=== PATIENT | female | born 2000 | race Caucasian/White ===

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

== ENCOUNTER 2020-05-24 00:14 | Emergency (ER) | payer MEDICAID, OTHER ==
[~2020-05-24] VITALS: Ht 157.5 cm; Wt 66.6 kg
[~2020-05-24 00:14] MED LIST changes: +ONDA8TAB9 PO; +TRAM1TAB4 PO
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
--- NOTE | 2020-05-24 00:51 | EKG ---
[address] [address] Test Date: 2020-05-24 Test Time: 00:43:50 Pat Name: PEÑA AJ Department: Room: Gender: F Customer Professional: : 2000 Requested By: LUH TOWNSEND Order Number: [id number] Reading MD: Measurements Intervals [place] Rate: 96 P: 62 CT: 120 QRS: 68 QRSD: 94 T: 28 QT: 340 QTc: 430 Interpretive Statements SINUS RHYTHM NORMAL ECG RI6.02 No previous ECG available for comparison
--- NOTE | 2020-05-24 00:54 | RAD ---
Single view chest dated 05/24/2020: No comparison available. Clinical Indication: Pain after injury. Findings: Single upright portable exam of the chest was performed. Heart size and mediastinal contours are with in normal limits given technique. The lungs are clear without evidence of focal consolidation. No ple ural effusion or pneumothorax. Impression:: Negative portable chest. Electronically signed by: Michael Ashraf MD (05/24/2020 12:52 AM) [facility]
--- NOTE | 2020-05-24 00:54 | RAD ---
CT HEAD AND C-SPINE WO dated 05/24/2020 12:24 AM. Comparison: None. Clinical Indication: Reason: fell off bar stool, hit head, loss of consciousness / Spl. Instructions: / History: , PAIN Technical factors: Contiguous 5 mm axial images of the head were obtained from the skullbase to the v ertex. No contrast was administered. In addition, 3 mm axial images of the cervical spine were acquir ed with thin cut coronal and sagittal reconstructions. One or more of the following individualized dose reduction techniques were utilized for this examinat ion: 1. Automated exposure control 2. Adjustment of the mA and/or kV according to patient size 3. Use of iterative reconstruction technique Findings head: Ventricles and sulci are within normal limits for age. No evidence of ventricular shift or mass effec t. Brain parenchyma is of normal attenuation. There is no evidence of hemorrhage or extra-axial colle ction. Visualized paranasal sinuses and mastoid air cells are clear. No acute osseous abnormality. IMPRESSION HEAD: No evidence of acute intracranial abnormality. Findings cervical spine: Images were acquired from skull base to T4. Evaluation is limited due to motion artifact. There is sl ight anterolisthesis of C4 on C5. Sagittal alignment is otherwise anatomic. Vertebral body heights ar e maintained. No apparent fracture. No prevertebral soft tissue swelling. Mild multilevel uncovertebral spurring and facet arthropathy. No apparent focal disc herniation. The bony canal and foramen are adequate. No significant soft tissue abnormality. Limited images of lung apices are clear.. . IMPRESSION CERVICAL SPINE: 1. Limited exam. No apparent fracture or malalignment. 2. Mild multilevel spondylosis. Electronically signed by: Michael Ashraf MD (05/24/2020 12:51 AM) [facility]
[2020-05-24 01:06] LABS: BASO % 1 % (0-3); EOS # 0.1 x10^3/uL (0.0-0.7); EOS % 2 % (0-3); HEMOGLOBIN 14.5 g/dL (12.0-15.5); LYMPH # 2.6 x10^3/uL (1.0-4.8); LYMPH % 40 % (24-48); MEAN CORPUSCULAR HEMOGLOBIN 31 pg (25-35); MEAN CORPUSCULAR HGB CONC 34 g/dL (31-37); MEAN CORPUSCULAR VOLUME 93 fL (79-100); MONO # 0.3 x10^3/uL (0.0-1.1); MONO % 5 % (0-9); NEUT # 3.5 x10^3uL (1.8-7.7); NEUT % 53 % (31-73); PLATELET COUNT 295 x10^3/uL (140-400); RED BLOOD COUNT 4.63 x10^6/uL (3.50-5.40); RED CELL DISTRIBUTION WIDTH 12.8 % (11.5-14.5); WHITE BLOOD COUNT 6.6 x10^3/uL (4.0-11.0)
[2020-05-24 01:24] LABS: CALCIUM 8.4 mg/dL (8.5-10.1); CREATININE 0.8 mg/dL (0.6-1.0); GFR 90.5; POTASSIUM 3.6 mmol/L (3.5-5.1)
[2020-05-24 01:39] LABS: ETHANOL 175 mg/dL (0-10); SALIC < 2.8 mg/dL (2.8-20.0)
[2020-05-24 01:40] LABS: ACETAMIN < 2.0 mcg/mL (10-30)
[2020-05-24 01:55] LABS: MAGNESIUM 2.3 mg/dL (1.8-2.4)
[2020-05-24 02:06] LABS: BARBITURATES NEG (NEG); BENZODIAZEPINES NEG (NEG); CANNABINOIDS NEG (NEG); COCAINE NEG (NEG); METHADONE NEG (NEG); OPIATES NEG (NEG); PHENCYCLIDINE NEG (NEG)
[2020-05-24 02:09] LABS: AMPHETAMINE/METHAMPHETAMINE NEG (NEG)
[2020-05-24 02:17] LABS: U PREG PATIENT NEGATIVE (NEG)
[2020-05-24 02:19] LABS: BACTERIA,URINE 0 /HPF (0-FEW); BILIRUBIN,URINE NEG (NEG); CLARITY,URINE CLEAR; COLOR,URINE YELLOW; GLUCOSE,URINE NEG (NEG); NITRITE,URINE NEG (NEG); RBC,URINE OCC /HPF (0-2); SQUAMOUS EPITHELIAL CELL,UR OCC /LPF; UROBILINOGEN,URINE 0.2 mg/dL (0.2 mg/dL); WBC,URINE OCC /HPF (0-4)
[2020-05-24] MEDS ORDERED: ONDANSETRON PF 4 MG/2 ML VIAL. IVP ONE (02:30)
[2020-05-24] MEDS ORDERED: MVI, ADULT NO.4 WITH VIT K 10 ML, FOLIC ACID INJ 1 MG, THIAMINE INJ 100 MG in IV RINGER... IV ONE (02:30)
[2020-05-24] MEDS ORDERED: ACETAMINOPHEN 500 MG TABLET PO ONE (02:30)
[2020-05-24] MEDS ORDERED: THIAMINE 200 MG/2 ML VIAL. IV ONE (02:47)
[2020-05-24] MEDS ORDERED: MVI, ADULT NO.4 WITH VIT K 10 ML VIAL IV ONE (02:48)
[2020-05-24] MEDS ORDERED: MVI, ADULT NO.4 WITH VIT K 10 ML, THIAMINE INJ 100 MG in IV RINGERS SOLUTION,LACTATED 1... IV ONE (03:45)
[2020-05-24] MEDS ORDERED: FOLIC ACID 1 MG TABLET PO ONE (03:45)
--- NOTE | 2020-05-24 04:12 | RAD ---
Single view pelvis dated 05/24/2020. No comparison available. CLINICAL INDICATION: Pain. FINDINGS: AP view pelvis shows normal bony alignment. No displaced fracture. No acute osseous or articular abno rmality. No periostitis or bone destruction. IMPRESSION: No acute findings. Electronically signed by: Michael Ashraf MD (05/24/2020 4:10 AM) [facility]
[2020-05-30 04:15] VITALS: BP 128/76
== END 2020-05-24 04:45 | disposition home or self-care (01) ==
LOC: ER 00:14
DX: S06.0X0A Concussion without loss of consciousness, initial encounter (principal); S70.02XA Contusion of left hip, initial encounter; F10.229 Alcohol dependence with intoxication, unspecified; R42 Dizziness and giddiness; R45.1 Restlessness and agitation; G43.909 Migraine, unspecified, not intractable, without status migrainosus; W18.09XA Striking against other object with subsequent fall, initial encounter; Y93.89 Activity, other specified; Y92.89 Other specified places as the place of occurrence of the external cause; Y99.8 Other external cause status
CPT/HCPCS: 36415; 70450; 71045; 72125; 72170; 80048; 80307; 80329; 81001; 81025; 82553; 83735; 83880; 84484; 85025; 85610; 85730; 93005; 96365; 96366; 96375; 99285; G0480; J2405; J7120

== ENCOUNTER 2020-07-25 11:18 | Emergency (ER) | payer OTHER ==
[~2020-07-25] VITALS: Ht 157.5 cm; Wt 66.6 kg
[2020-07-25 12:05] VITALS: BP 136/76
== END 2020-07-25 12:10 ==
LOC: ER 11:18
DX: R51.9 Headache, unspecified (principal); Z53.21 Procedure and treatment not carried out due to patient leaving prior to being seen by health care provider

== ENCOUNTER 2020-08-09 15:40 | Emergency (ER) | payer OTHER ==
[~2020-08-09] VITALS: Ht 157.5 cm; Wt 67.8 kg
--- NOTE | 2020-08-09 15:43 | PHYS DOC ---
Past History Past Medical History: Alcoholism, Constipation, Migraines Additional Past Medical Histor: previous head injuries-concussions, traumatic brain injury Past Surgical History: No Surgical History Additional Past Surgical Histo: pt is a poor historian and forgets current situ ation Smoking: Non-smoker Alcohol Use: Rarely Drug Use: None Adult General HPI HPI Patient is a 20-year-old female who presents to the emergency department complaining of a migraine since 9 AM while she was heading to work. Patient states she has had daily migraines since she was a teenager related to several concussions she has had in the past. Patient reports she sees a neurologist for her migraine headaches and has an appointment this Wednesday with a Dr. Madison at [facility] for ongoing migraine evaluation, patient states that she cannot take her pain any longer. Patient states that this migraine presented like all her other migraines and is not worse than normal. Patient states she usually finds relief with a headache cocktail which she goes to an emergency department. Patient complains of nausea, frontal head pressure, photophobia. Patient denies other visual disturbances, denies recent fever or chills, denies chest pain, chest congestion, cough, sore throat, back pain, neck pain, abdominal pain, vomiting, constipation, or diarrhea. Patient denies ear pains, rashes to her skin, numbness or tingling to her extremities. Patient reports her last menstrual cycle was about 2 or 3 weeks ago. Patient states she takes Fioricet and Maxalt for her migraine headaches, states she took both medications today and it did not relieve her headache pains. Patient denies any other physical complaints or physical concerns. Review of Systems Review of Systems 14 body systems of review of systems have been reviewed. See HPI for pertinent positives and negative responses, otherwise all other systems are negative, nonpertinent or noncontributory. Allergies Allergies Allergies Coded Allergies Type Severity Reaction Last Updated Verified No Known Drug Allergies 12/24/13 No Physical Exam Physical Exam Constitutional: Well developed, well nourished, moderate distress and tearful, non-toxic appearance. Patient photophobic, lights turned out in room for patient comfort during physical exam. HENT: Normocephalic, atraumatic, bilateral external ears normal, oropharynx mo ist, no oral exudates, nose normal. Oropharynx moist, pink, no tonsillar infectious process appreciated, no postnasal drip, no lymphadenopathy of the head or neck, no bilateral TMs normal, bilateral external auditory canals within normal limits. Eyes: PERRLA, EOMI, conjunctiva normal, no discharge. Neck: Normal range of motion, no tenderness, supple, no stridor. No midline spinal tenderness, no nuchal rigidity, no meningismus signs. Cardiovascular:Heart rate regular rhythm, heart sounds S1-S2 to auscultation. Lungs & Thorax: Bilateral breath sounds clear to auscultation all lung alex, no adventitious lung sounds appreciated. Abdomen: Bowel sounds normal, soft, no tenderness, no masses, no pulsatile masses. Skin: Warm, dry, no erythema, no rash. Back: No tenderness to palpation along spinous bony prominences or adjacent structures of the back. Extremities: No tenderness, no cyanosis, no clubbing, ROM intact, no edema. Neurologic: Alert and oriented X 3, normal motor function, normal sensory function, no focal deficits noted. Psychologic: Affect normal, judgement normal, mood normal. EKG EKG [] Radiology/Procedures Radiology/Procedures [] Heart Score C/O Chest Pain: No Risk Factors: Risk Factors: DM, Current or recent (<one month) smoker, HTN, HLP, family history of CAD, obesity. Risk Scores: Risk Factors: DM, Current or recent (<one month) smoker, HTN, HLP, family history of CAD, obesity. Course & Med Decision Making Course & Med Decision Making Pertinent Labs and Imaging studies reviewed. (See chart for details) 20-year-old female, vital signs reviewed, presents emergency department for treatment of migraine headache. Physical examination is consistent with migraine headache exacerbation, considered imaging, will defer imaging at this time as patient reports this is a normal migraine for her with normal presentation and pain. Patient does have history of migraines. Patient is asking for anxiety medication as she states she usually feels anxious after receiving Benadryl. After an extensive chart review of past visits in the emergency department, patient has not received any anxiolytic medication with her headache cocktails. Discussed this with patient, will defer anxiolytic at this time. After a period of weight during normal saline infusion, patient states headache has resolved and she is ready to go home, patient states she feels tired and will rest the rest of the evening, patient states she does not need a work excuse for tonight, patient states she will keep her appointment with her neurologist this coming Wednesday. Patient gave verbal understanding of discharge home instructions, PCP follow-up, return to ER concerns, was discharged home without incident. Dragon Disclaimer Dragon Disclaimer This electronic medical record was generated, in whole or in part, using a voice recognition dictation system. Departure Departure: Impression: Primary Impression: Migraine Disposition: 01 DC HOME SELF CARE/HOMELESS Condition: GOOD Referrals: ES LECHUGA MD (PCP) Patient Instructions: Migraine Headache Additional Instructions: You may use [id number] Tylenol and or Motrin as needed for reoccurring headaches, because of the medications I gave you today in the emergency department I recommend no driving or operating heavy machinery until tomorrow morning, please increase fluid intake with either water or Gatorade, keep your appointment this Wednesday with your neurologist, return to the emergency department for worsening symptoms or other concerns. EMERGENCY DEPARTMENT GENERAL DISCHARGE INSTRUCTIONS Thank you for coming to [facility] (ED) today and trusting us with you care. We trust that you had a positivie experience in our Emergency Department. If you wish to speak to the department management, you may call the director at [phone]. YOUR FOLLOW UP INSTRUCTIONS ARE FOLLOWS: 1. Do you have a private Doctor? If you do not have a private doctor, please ask for a resource list of physicians or clinics that may be able to assist you with follow up care. 2. The Emergency Physician has interpreted your x-rays. The X-Ray specialist will also review them. If there is a change in the findings, you will be notified in 48 hours when at all possible. 3. A lab test or culture has been done, your results will be reviewed and you will be notified if you need a change in treatment. ADDITIONAL INSTRUCTIONS AND INFORMATION: 1. Your care today has been supervised by a physician who is specially trained in emergency care. Many problems require more than one evaluation for a complete diagnosis and treatment. We recommend that you schedule your follow up appointment as recommended to ensure complete treatment of you illness or injury. If you are unable to obtain follow up care and continue to have a problem, or if your condition worsens, we recommend that you return to the ED. 2. We are not able to safely determine your condition over the phone nor are we able to give sound medical advice over the phone. For these safety reasons, if you call for medical advice we will ask you to come to the ED for further evaluation. 3. If you have any questions regarding these discharge instructions please call the ED at [phone]. SAFETY INFORMATION: In the interest of safety, wellness, and injury prevention; we encourage you to wear your sealbelt, if you smoke; quite smoking, and we encourage family to use a protective helmet for bicycling and other sporting events that present an increased risk for head injury. IF YOUR SYMPTOMS WORSEN OR NEW SYMPTOMS DEVELOP, OR YOU HAVE CONCERNS ABOUT YOUR CONDITION; OR IF YOUR CONDITION WORSENS WHILE YOU ARE WAITING FOR YOUR FOLLOW UP APPOINTMENT; EITHER CONTACT YOUR PRIMARY CARE DOCTOR, THE PHYSICIAN WHOSE NAME AND NUMBER YOU WERE GIVEN, OR RETURN TO THE ED IMMEDIATELY. Problem Qualifiers Primary Impression: Migraine Migraine type: without aura Status migrainosus presence: without status migrainosus Intractability: not intractable Qualified Codes: G43.009 - Migraine without aura, not intractable, without status migrainosus ANDRE MESA APRN Aug 09, 2020 15:43
[2020-08-09] MEDS ORDERED: KETOROLAC 30 MG/ML VIAL. IVP ONE (16:15)
[2020-08-09] MEDS ORDERED: diphenhydrAMINE 50 MG/ML VIAL IVP ONE (16:15)
[2020-08-09] MEDS ORDERED: PROCHLORPERAZINE 10 MG/2 ML VIAL. IV ONE (16:15)
[2020-08-09] MEDS ORDERED: IV NORMAL SALINE 1,000ML 1,000 ML IV ONE (16:15)
[2020-08-09 16:41] LABS: BARBITURATES NEG (NEG); BENZODIAZEPINES NEG (NEG); CANNABINOIDS POS (NEG); COCAINE NEG (NEG); METHADONE NEG (NEG); OPIATES NEG (NEG); PHENCYCLIDINE NEG (NEG)
[2020-08-09 16:57] LABS: AMPHETAMINE/METHAMPHETAMINE NEG (NEG)
[2020-08-09 17:05] LABS: BILIRUBIN,URINE NEG (NEG); CLARITY,URINE CLEAR; COLOR,URINE YELLOW; GLUCOSE,URINE NEG (NEG)
[2020-08-09 17:06] LABS: BACTERIA,URINE MOD /HPF (0-FEW); NITRITE,URINE NEG (NEG); RBC,URINE OCC /HPF (0-2); SQUAMOUS EPITHELIAL CELL,UR MANY /LPF; UROBILINOGEN,URINE 0.2 mg/dL (0.2 mg/dL)
[2020-08-09 17:56] VITALS: BP 126/72
== END 2020-08-09 17:56 | disposition home or self-care (01) ==
LOC: ER 15:40
DX: G43.909 Migraine, unspecified, not intractable, without status migrainosus (principal); F10.20 Alcohol dependence, uncomplicated; Z87.820 Personal history of traumatic brain injury; Y90.0 Blood alcohol level of less than 20 mg/100 ml
CPT/HCPCS: 36415; 80307; 81001; 81025; 87086; 96361; 96374; 96375; 99284; J0780; J1200; J1885; J7030

== ENCOUNTER 2020-11-06 09:57 | Emergency (ER) | payer OTHER ==
[~2020-11-06] VITALS: Ht 157.5 cm; Wt 67.2 kg
[2020-11-06] MEDS ORDERED: PROCHLORPERAZINE 10 MG/2 ML VIAL. IV ONE (11:00)
[2020-11-06] MEDS ORDERED: IV NORMAL SALINE 1,000ML 1,000 ML IV ONE (11:00)
[2020-11-06] MEDS ORDERED: diphenhydrAMINE 50 MG/ML VIAL IVP ONE (11:00)
--- NOTE | 2020-11-06 11:20 | PHYS DOC ---
Past History Past Medical History: GERD, IBS Additional Past Medical Histor: previous head injuries-concussions, traumatic brain injury Past Surgical History: Appendectomy, Other Additional Past Surgical Histo: esophageal surgery as Smoking: Non-smoker Alcohol Use: None Drug Use: None General Adult EDM: Chief Complaint: HEADACHE HPI: HPI: Patient is a 20-year-old female coming in for left occipital headache for the past 3 days. Patient has a history of migraines but usually towards the front. Has taken her Maxalt and ibuprofen without improvement. Patient states that she just started getting Botox about a month and a half ago. She had some nausea but no vomiting, photophobia. Patient states this pain is usually in the left occipital area but sometimes radiates around the back to the right side. Denies any neck pain or stiffness. 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 Review of Systems: Review of Systems: All other systems within normal limits except for as noted in the HPI Current Medications: Current Meds: Current Medications Medications (Trade) Dose Ordered Sig/Venkat Start Time Stop Time Status Last Admin Dose Admin Diphenhydramine HCl (Benadryl) 50 mg 1X ONCE 11/06/20 11:00 11/06/20 11:05 DC Ketorolac Tromethamine (Toradol 15mg Vial) 15 mg 1X ONCE 11/06/20 11:00 11/06/20 11:01 UNV Lorazepam (Ativan Inj) 0.5 mg 1X ONCE 11/06/20 11:15 11/06/20 11:16 UNV Prochlorperazine Edisylate (Compazine) 10 mg 1X ONCE 11/06/20 11:00 11/06/20 11:05 DC Sodium Chloride 1,000 ml @ 1,000 mls/hr 1X ONCE 11/06/20 11:00 11/06/20 11:59 Allergies: Allergies: Allergies Coded Allergies Type Severity Reaction Last Updated Verified bacitracin Allergy Unknown 08/09/20 Yes neomycin Allergy Unknown 08/09/20 Yes polymyxin B Allergy Unknown 08/09/20 Yes Physical Exam: PE: Constitutional: Well developed, well nourished, no acute distress, non-toxic appearance. [] HENT: Normocephalic, atraumatic, bilateral external ears normal, nose normal. [] Eyes: PERRLA, conjunctiva normal, no discharge. [] Neck: No rigidity, supple, no stridor. [] Cardiovascular: Regular rate and rhythm, brisk cap refill [] Lungs & Thorax: Non labored symmetric respirations, no tachypnea or respiratory distress [] Abdomen: Soft, nondistended. Skin: Warm, dry, no erythema, no rash. [] Back: Unremarkable Extremities: No deformities, range of motion grossly intact, no lower extremity edema [] Neurologic: Alert and oriented X 3, no focal deficits noted. [] Psychologic: Affect normal, judgement normal, mood normal. [] Current Patient Data: Vital Signs: Vital Signs Date Time Temp Pulse Resp B/P (MAP) Pulse Ox O2 Delivery O2 Flow Rate FiO2 11/06/20 10:59 99.3 91 18 128/76 (93 98 Room Air EKG: EKG: [] Radiology/Procedures: Radiology/Procedures: [place] [address] IMAGING REPORT Signed PATIENT: PEÑA AJ LACCOUNT: [id number] : 2000 LOCATION: ER AGE: 20 SEX: F EXAM STATUS: REG ER ORD. PHYSICIAN: ALEXANDRA CHARLES MD REASON: HEADACHE X3 DAYS. FAMILY HX OF BRAIN DISEASE. PROCEDURE: CT HEAD WO CONTRAST EXAM: CT HEAD WITHOUT CONTRAST. HISTORY: And persistent headache. TECHNIQUE: Computed tomography of the head was performed without intravenous contrast. One or more of the following individualized dose reduction techniques were utilized for this examination: 1. Automated exposure control. 2. Adjustment of the mA and/or kV according to patient size. 3. Use of iterative reconstruction technique. COMPARISON: 05/24/2020. FINDINGS: There is no intracranial hemorrhage. Vega-white differentiation is preserved. The ventricles are normal in size. There is rightward midline shift of 3 mm, not clearly changed since 2018. This may be a developmental variant. No cause for mass effect is identified. The visualized paranasal sinuses appear clear. The orbits are unremarkable. The temporal bones are unremarkable. The calvarium reveals no suspicious lesions. IMPRESSION: 1. No acute intracranial findings. 2. 3 mm rightward midline shift appears stable chronically and a developmental variant is favored over mass effect. Electronically signed by: Dudley Bernstein MD (11/06/2020 11:21 AM) [id number] DICTATED AND SIGNED BY: TYRON BERNSTEIN MD DATE: 11/06/20 1118 CC: ALEXANDRA CHARLES MD; ES LECHUGA MD ~MTH0 0 [] Heart Score: C/O Chest Pain: No Risk Factors: Risk Factors: DM, Current or recent (<one month) smoker, HTN, HLP, family history of CAD, obesity. Risk Scores: Score 0 - 3: 2.5% MACE over next 6 weeks - Discharge Home Score 4 - 6: 20.3% MACE over next 6 weeks - Admit for Clinical Observation Score 7 - 10: 72.7% MACE over next 6 weeks - Early Invasive Strategies Course & Med Decision Making: Course & Med Decision Making Pertinent Labs and Imaging studies reviewed. (See chart for details) Headache improved with medications. Driven home by sister [] Beck Disclaimer: Beck Disclaimer: This electronic medical record was generated, in whole or in part, using a voice recognition dictation system. Departure Departure: Impression: Primary Impression: Migraine Disposition: HOME / SELF CARE / HOMELESS Condition: IMPROVED Referrals: ES LECHUGA MD (PCP) Patient Instructions: Recurrent Migraine Headache ALEXANDRA CHARELS MD Nov 06, 2020 11:20
--- NOTE | 2020-11-06 11:24 | RAD ---
EXAM: CT HEAD WITHOUT CONTRAST. HISTORY: And persistent headache. TECHNIQUE: Computed tomography of the head was performed without intravenous contrast. One or more of the following individualized dose reduction techniques were utilized for this examination: 1. Automated exposure control. 2. Adjustment of the mA and/or kV according to patient size. 3. Use of iterative reconstruction technique. COMPARISON: 05/24/2020. FINDINGS: There is no intracranial hemorrhage. Vega-white differentiation is preserved. The ventricle s are normal in size. There is rightward midline shift of 3 mm, not clearly changed since 2018. This may be a developmental variant. No cause for mass effect is identified. The visualized paranasal sinuses appear clear. The orbits are unremarkable. The temporal bones are un remarkable. The calvarium reveals no suspicious lesions. IMPRESSION: 1. No acute intracranial findings. 2. 3 mm rightward midline shift appears stable chronically and a developmental variant is favored ove r mass effect. Electronically signed by: Dudley Bernstein MD (11/06/2020 11:21 AM) [id number]
[2020-11-06] MEDS ORDERED: KETOROLAC 15 MG/ML VIAL. IVP ONE (11:30)
[2020-11-06 11:56] LABS: BASO % 1 % (0-3); EOS # 0.1 x10^3/uL (0.0-0.7); EOS % 1 % (0-3); HEMATOCRIT 40.8 % (36.0-47.0); HEMOGLOBIN 14.1 g/dL (12.0-15.5); LYMPH # 1.8 x10^3/uL (1.0-4.8); LYMPH % 27 % (24-48); MEAN CORPUSCULAR HEMOGLOBIN 32 pg (25-35); MEAN CORPUSCULAR HGB CONC 34 g/dL (31-37); MEAN CORPUSCULAR VOLUME 93 fL (79-100); MONO # 0.3 x10^3/uL (0.0-1.1); MONO % 5 % (0-9); NEUT # 4.4 x10^3uL (1.8-7.7); NEUT % 67 % (31-73); PLATELET COUNT 242 x10^3/uL (140-400); RED BLOOD COUNT 4.39 x10^6/uL (3.50-5.40); RED CELL DISTRIBUTION WIDTH 12.5 % (11.5-14.5); WHITE BLOOD COUNT 6.5 x10^3/uL (4.0-11.0)
[2020-11-06 12:00] VITALS: BP 141/52
[2020-11-06 12:08] LABS: CALCIUM 8.8 mg/dL (8.5-10.1); CREATININE 0.7 mg/dL (0.6-1.0); GFR 105.6
[2020-11-06 12:13] LABS: ALBUMIN 3.6 g/dL (3.4-5.0); ALBUMIN/GLOBULIN RATIO 1.1 (1.0-1.7); TOTAL BILIRUBIN 0.5 mg/dL (0.2-1.0); TOTAL PROTEIN 6.9 g/dL (6.4-8.2)
[2020-11-06 12:14] LABS: BACTERIA,URINE MANY /HPF (0-FEW); BILIRUBIN,URINE NEG (NEG); CLARITY,URINE CLEAR; COLOR,URINE YELLOW; GLUCOSE,URINE NEG (NEG); NITRITE,URINE NEG (NEG); SQUAMOUS EPITHELIAL CELL,UR MANY /LPF; UROBILINOGEN,URINE 0.2 mg/dL (0.2 mg/dL)
== END 2020-11-06 12:57 | disposition home or self-care (01) ==
LOC: ER 09:57
DX: G43.909 Migraine, unspecified, not intractable, without status migrainosus (principal); K21.9 Gastro-esophageal reflux disease without esophagitis; K58.9 Irritable bowel syndrome, unspecified; Z87.820 Personal history of traumatic brain injury; Z88.1 Allergy status to other antibiotic agents; Z88.8 Allergy status to other drugs, medicaments and biological substances
CPT/HCPCS: 36415; 70450; 80053; 81001; 81025; 83735; 85025; 87086; 96361; 96374; 96375; 99284; J0780; J1200; J2060; J7030

== ENCOUNTER 2020-11-12 14:48 | Emergency (ER) | payer OTHER ==
[~2020-11-12] VITALS: Ht 157.5 cm; Wt 67.2 kg
[2020-11-12 15:04] VITALS: BP 130/91
[2020-11-12] MEDS ORDERED: ONDANSETRON PF 4 MG/2 ML VIAL. IVP ONE (15:30)
[2020-11-12] MEDS ORDERED: IV NORMAL SALINE 1,000ML 1,000 ML IV ONE (15:30)
[2020-11-12] MEDS ORDERED: DEXAMETHASONE SOD PHOS 10 MG/ML VIAL. IV ONE (15:30)
[2020-11-12] MEDS ORDERED: KETOROLAC 30 MG/ML VIAL. IVP ONE (15:30)
--- NOTE | 2020-11-12 16:45 | PHYS DOC ---
Past History Past Medical History: GERD, IBS Additional Past Medical Histor: previous head injuries-concussions, traumatic brain injury (ANDRE MESA APRN) Past Surgical History: Appendectomy, Other Additional Past Surgical Histo: esophageal surgery as (ANDRE MESA APRN) Smoking: Non-smoker Alcohol Use: None Drug Use: None (ANDRE MESA APRN) Adult General Chief Complaint Chief Complaint: HEADACHE HPI HPI Patient is a 20-year-old female who presents emergency department reporting a migraine that has been going on since 2 days ago. Patient states that she was at her concussion physician's office Dr. Madison at [facility] and was given a prescription for an NSAID. She was also recommended to follow-up with her neurologist today. Patient reports that she could no longer take the pain so she decided to come to the ER for evaluation. Patient denies taking any medications today for her pain. Patient reports this migraine is in the back of her head like her other migraines, does not complain of a thunderclap onset, reports that this is not the worst headache of her life, states her headache is currently a 7 or 8 out of 10. Patient denies vomiting abdominal pain or diarrhea, reports some nausea. Patient reports her last menstrual cycle was years ago and has not had a medical cycle since started on low Loestrin control pill. Patient states she cannot be because she is not having any sex for the past month or so. Patient denies any other physical complaints or physical concerns. (ANDRE MESA APRN) Review of Systems Review of Systems 14 body systems of review of systems have been reviewed. See HPI for pertinent positives and negative responses, otherwise all other systems are negative, nonpertinent or noncontributory. (ANDRE MESA APRN) Current Medications Current Medications Current Medications Medications (Trade) Dose Ordered Sig/Venkat Start Time Stop Time Status Last Admin Dose Admin Dexamethasone Sodium Phosphate (Decadron) 10 mg 1X ONCE 11/12/20 15:30 11/12/20 15:31 DC 11/12/20 15:37 10 MG Ketorolac Tromethamine (Toradol 30mg Vial) 30 mg 1X ONCE 11/12/20 15:30 11/12/20 15:31 DC 11/12/20 15:37 30 MG Ondansetron HCl (Zofran) 4 mg 1X ONCE 11/12/20 15:30 11/12/20 15:31 DC 11/12/20 15:36 4 MG Sodium Chloride 1,000 ml @ 1,000 mls/hr 1X ONCE 11/12/20 15:30 11/12/20 16:29 DC 11/12/20 15:36 1,000 MLS/HR (ANDRE MESA APRN) Allergies Allergies Allergies Coded Allergies Type Severity Reaction Last Updated Verified bacitracin Allergy Unknown 08/09/20 Yes neomycin Allergy Unknown 08/09/20 Yes polymyxin B Allergy Unknown 08/09/20 Yes (ANDRE MESA APRN) Physical Exam Physical Exam Constitutional: Well developed, well nourished, no acute distress, non-toxic appearance. Patient lying in bed holding her hand over her eyes. HENT: Normocephalic, atraumatic, bilateral external ears normal, oropharynx moist, no oral exudates, nose normal. Eyes: PERRLA, EOMI, conjunctiva normal, no discharge. Patient is photophobic. Neck: Normal range of motion, no tenderness, supple, no stridor. No meningismus signs, no nuchal rigidity. Cardiovascular:Heart rate regular rhythm, no murmur Lungs & Thorax: Bilateral breath sounds clear to auscultation no adventitious lung sounds appreciated. Abdomen: Bowel sounds normal, soft, no tenderness, no masses, no pulsatile masses. Skin: Warm, dry, no erythema, no rash. Back: No tenderness, no CVA tenderness. Extremities: No tenderness, no cyanosis, no clubbing, ROM intact, no edema. Neurologic: Alert and oriented X 3, normal motor function, normal sensory function, no focal deficits noted. Psychologic: Affect normal, judgement normal, mood normal. (ANDRE MESA APRN) Current Patient Data Vital Signs Vital Signs Date Time Temp Pulse Resp B/P (MAP) Pulse Ox O2 Delivery O2 Flow Rate FiO2 11/12/20 15:04 98.0 83 16 130/91 (104) 96 Room Air (ANDRE MESA APRN) EKG EKG [] (ANDRE MESA APRN) Radiology/Procedures Radiology/Procedures [] (ANDRE MESA APRN) Heart Score C/O Chest Pain: No Risk Factors: Risk Factors: DM, Current or recent (<one month) smoker, HTN, HLP, family history of CAD, obesity. Risk Scores: Risk Factors: DM, Current or recent (<one month) smoker, HTN, HLP, family history of CAD, obesity. (ANDRE MESA APRN) Course & Med Decision Making Course & Med Decision Making Pertinent Labs and Imaging studies reviewed. (See chart for details) 20-year-old female, vital signs reviewed, presents emergency department with complaint of a migraine headache. This was not a thunderclap onset, patient reports normal migraine problems. Patient reports coming here from her concussion physician's office Dr. Madison after it was recommended she take prescribed NSAIDs for pain and follow-up with her neurologist Dr. Sharif at [facility]. Started saline lock, gave 4 mg IV Zofran, 10 mg Decadron IV, 1 L normal saline, 30 mg Toradol IV. After a period of time reevaluation of the patient found the patient pain-free. Patient states she feels much better and is ready to go home. Discussed with patient follow-up with her neurologist for ongoing headache/migraine management. Patient gave verbal understanding of discharge home instructions, follow-up with neurologist soon, return to ER precaution concerns, patient was discharged home without incident. (ANDRE MESA APRN) Dragon Disclaimer Dragon Disclaimer This electronic medical record was generated, in whole or in part, using a voice recognition dictation system. (ANDRE MESA APRN) Departure Departure: Impression: Primary Impression: Migraine Disposition: 01 HOME / SELF CARE / HOMELESS Condition: GOOD Referrals: ES LECHUGA MD (PCP) Patient Instructions: Migraine Headache Additional Instructions: You were seen and treated today in the ER for your migraine headache presentation. Please follow-up with your neurologist Dr. Sharif as your concussion physician Dr. Madison has recommended. Please return to the emergency department for worsening symptoms or other concerns. EMERGENCY DEPARTMENT GENERAL DISCHARGE INSTRUCTIONS Thank you for coming to [facility] (ED) today and trusting us with you care. We trust that you had a positivie experience in our Emergency Department. If you wish to speak to the department management, you may call the director at [phone]. YOUR FOLLOW UP INSTRUCTIONS ARE FOLLOWS: 1. Do you have a private Doctor? If you do not have a private doctor, please ask for a resource list of physicians or clinics that may be able to assist you with follow up care. 2. The Emergency Physician has interpreted your x-rays. The X-Ray specialist will also review them. If there is a change in the findings, you will be notified in 48 hours when at all possible. 3. A lab test or culture has been done, your results will be reviewed and you will be notified if you need a change in treatment. ADDITIONAL INSTRUCTIONS AND INFORMATION: 1. Your care today has been supervised by a physician who is specially trained in emergency care. Many problems require more than one evaluation for a complete diagnosis and treatment. We recommend that you schedule your follow up appointment as recommended to ensure complete treatment of you illness or injury. If you are unable to obtain follow up care and continue to have a problem, or if your condition worsens, we recommend that you return to the ED. 2. We are not able to safely determine your condition over the phone nor are we able to give sound medical advice over the phone. For these safety reasons, if you call for medical advice we will ask you to come to the ED for further evaluation. 3. If you have any questions regarding these discharge instructions please call the ED at [phone]. SAFETY INFORMATION: In the interest of safety, wellness, and injury prevention; we encourage you to wear your sealbelt, if you smoke; quite smoking, and we encourage family to use a protective helmet for bicycling and other sporting events that present an increased risk for head injury. IF YOUR SYMPTOMS WORSEN OR NEW SYMPTOMS DEVELOP, OR YOU HAVE CONCERNS ABOUT YOUR CONDITION; OR IF YOUR CONDITION WORSENS WHILE YOU ARE WAITING FOR YOUR FOLLOW UP APPOINTMENT; EITHER CONTACT YOUR PRIMARY CARE DOCTOR, THE PHYSICIAN WHOSE NAME AND NUMBER YOU WERE GIVEN, OR RETURN TO THE ED IMMEDIATELY. Attending Signature Attending Signature I have reviewed the PA/ROPEMAN's note and plan of care. I was available for consultation as needed during the patient's visit in the emergency department. I agree with the clinical impression, plan, and disposition. (ANDRE MANNING DO) Problem Qualifiers Primary Impression: Migraine Migraine type: without aura Status migrainosus presence: with status migrainosus Intractability: not intractable Qualified Codes: G43.001 - Migraine without aura, not intractable, with status migrainosus ANDRE MESA APRN Nov 12, 2020 16:45 ANDRE MANNING DO Nov 12, 2020 19:36
== END 2020-11-12 17:01 | disposition home or self-care (01) ==
LOC: ER 14:48
DX: G43.001 Migraine without aura, not intractable, with status migrainosus (principal); K21.9 Gastro-esophageal reflux disease without esophagitis; K58.9 Irritable bowel syndrome, unspecified; Z87.820 Personal history of traumatic brain injury; Z88.1 Allergy status to other antibiotic agents; Z88.8 Allergy status to other drugs, medicaments and biological substances
CPT/HCPCS: 96361; 96374; 96375; 99284; J1100; J1885; J2405; J7030

== ENCOUNTER 2020-12-15 22:29 | Emergency (ER) | payer OTHER ==
[~2020-12-15] VITALS: Ht 157.5 cm; Wt 68.4 kg
--- NOTE | 2020-12-15 22:56 | PHYS DOC ---
Past History Past Medical History: GERD, IBS Additional Past Medical Histor: previous head injuries-concussions, traumatic brain injury Past Surgical History: Appendectomy, Other Additional Past Surgical Histo: esophageal surgery as Smoking: Non-smoker Alcohol Use: None Drug Use: None Adult General Chief Complaint Chief Complaint: SUICIDAL IDEATION HPI HPI Patient is a 20-year-old female who presents to the emergency department after having an episode of suicidal ideation and taking 6-10 of her migraine medicine pills after fighting with a migraine yesterday and just breaking down becoming sad and depressed. States right at the moment she was having some suicidal ideation and took them but regretted it right afterwards as she does not want to hurt her self or . States she took about 6-10, she is not sure of her butalbital with codeine Tylenol at about 1 PM yesterday. States it made her really sleepy and she felt nauseous for some time but is feeling better now. Denies any headache, changes in vision, chest pain, shortness of breath, abdominal pain, nausea, vomiting or diarrhea. Denies any numbness/weakness/tingling. Denies any current suicidal ideations, homicidal ideations or hallucinations. States she feels embarrassed and just wants to go home on hanging out with her boyfriend and play with her puppies. Review of Systems Review of Systems Review of systems otherwise unremarkable except noted in HPI Allergies Allergies Allergies Coded Allergies Type Severity Reaction Last Updated Verified bacitracin Allergy Unknown 08/09/20 Yes neomycin Allergy Unknown 08/09/20 Yes polymyxin B Allergy Unknown 08/09/20 Yes Physical Exam Physical Exam Constitutional: Well developed, well nourished, no acute distress, non-toxic appearance. [] HENT: Normocephalic, atraumatic, bilateral external ears normal, oropharynx moist, no oral exudates, nose normal. [] Eyes: PERRLA, EOMI, conjunctiva normal, no discharge. [] Neck: Normal range of motion, no tenderness, supple, no stridor. [] Cardiovascular:Heart rate regular rhythm, no murmur [] Lungs & Thorax: Bilateral breath sounds clear to auscultation [] Abdomen: Bowel sounds normal, soft, no tenderness, no masses, no pulsatile masses. [] Skin: Warm, dry, no erythema, no rash. [] Back: No tenderness, no CVA tenderness. [] Extremities: No tenderness, no cyanosis, no clubbing, ROM intact, no edema. [] Neurologic: Alert and oriented X 3, normal motor function, normal sensory function, able to sit, stand and walk without issue, able to take p.o., no focal deficits noted. [] Psychologic: Affect normal, judgement abnormal, mood anxious/depressed. Adamantly denies any suicidal ideation or ideas of wanting to hurt her self, homicidal ideation or hallucinations. [] EKG EKG [] Radiology/Procedures Radiology/Procedures [] Heart Score C/O Chest Pain: No Risk Factors: Risk Factors: DM, Current or recent (<one month) smoker, HTN, HLP, family history of CAD, obesity. Risk Scores: Risk Factors: DM, Current or recent (<one month) smoker, HTN, HLP, family history of CAD, obesity. Course & Med Decision Making Course & Med Decision Making Patient is a 20-year-old female who presents about 8 hours after taking a handful of her migraine pills Initial vital signs notable for tachycardia and hypertension which resolved while in the emergency department. Patient able to take p.o. Patient awake, alert and oriented in no acute distress with no focal neurologic deficits. After some time in the emergency department and visiting with the psychiatric liaison she stated she regretted doing what she did, was embarrassed and just wants to go home with her boyfriend and play with her puppies. Adamantly denies suicidal ideation, homicidal ideation or hallucinations. Our PAT steam room attendant evaluated her with and without boyfriend and felt that she did do this most likely during a migraine headache impulsively and did not actually want to hurt herself or commit suicide. Agrees that she seems to genuinely feel bad about what she did and is embarrassed and is safe to discharge home with a safety plan. Given psychiatric liaison safety plan as well as local primary care physician numbers and local resources including the guidance Center with the guidance Center hotline. Discussed all findings with family and advised to call primary care physician in the guidance Center first thing in the morning to set up appointments as soon as possible. Gave work notes for both patient and partner to stay home tomorrow to accomplish the goal of contacting primary care physician and other support. Advised both parties that she should not be alone over the next several days for support. Gave strict return precautions to the ED. Family grateful, verbalized understanding and agreed with plan of discharge. [] Dragon Disclaimer Dragon Disclaimer This electronic medical record was generated, in whole or in part, using a voice recognition dictation system. Departure Departure: Impression: Primary Impression: Suicidal ideation Additional Impression: Overdose of drug/medicinal substance Disposition: HOME / SELF CARE / HOMELESS Condition: STABLE Referrals: ES LECHUGA MD (PCP) PAYTON WILSON MD, RACHEL Patient Instructions: Migraine Headache, Recurrent Migraine Headache, Suicidal Feelings, How to Help Yourself, Suicide, Helping Someone Who is Suicidal Additional Instructions: Thank you for coming into the emergency department tonight and allowing us to take care of you. Please read all of the attached information very carefully to go back over the things that we discussed and be sure to read and go back over the safety plan given to you by our psychiatric heel cover splitter. You were given a safety plan but also resources and contact information for local primary care physicians, local [facility] and the guidance Center which is a 24-hour hotline as discussed to call if you have any concerns or issues. As always the emergency department is open 24 hours a day if you need to come back in or have any new or concerning symptoms as discussed. Please call your primary care physician and the guidance Center first thing in the morning to discuss your ED visit and set up follow-up appointments as soon as possible, this week would be preferable. You are also given the name and contact information of 2 local primary care physicians here in the area to try and call as well if you are unhappy with your primary care physician. Over the next couple of days as discussed, please keep yourself surrounded by loved ones and friends for support. Again, please come back to the emergency department immediately if you have any new or concerning symptoms. Problem Qualifiers SANJUANITA JAMES MD Dec 15, 2020 22:56
[2020-12-15 23:37] LABS: BASO # 0.1 x10^3/uL (0.0-0.2); BASO % 1 % (0-3); EOS # 0.1 x10^3/uL (0.0-0.7); EOS % 1 % (0-3); HEMATOCRIT 40.3 % (36.0-47.0); HEMOGLOBIN 14.3 g/dL (12.0-15.5); LYMPH # 1.7 x10^3/uL (1.0-4.8); LYMPH % 29 % (24-48); MEAN CORPUSCULAR HEMOGLOBIN 33 pg (25-35); MEAN CORPUSCULAR HGB CONC 35 g/dL (31-37); MEAN CORPUSCULAR VOLUME 93 fL (79-100); MONO # 0.3 x10^3/uL (0.0-1.1); MONO % 6 % (0-9); NEUT # 3.9 x10^3uL (1.8-7.7); NEUT % 63 % (31-73); PLATELET COUNT 229 x10^3/uL (140-400); RED BLOOD COUNT 4.34 x10^6/uL (3.50-5.40); WHITE BLOOD COUNT 6.1 x10^3/uL (4.0-11.0)
[2020-12-15] MEDS ORDERED: IV RINGERS SOLUTION,LACTATED 1,000 ML IV ONE (23:45)
[2020-12-15 23:48] LABS: CALCIUM 8.6 mg/dL (8.5-10.1); CREATININE 0.8 mg/dL (0.6-1.0); GFR 90.5; POTASSIUM 3.4 mmol/L (3.5-5.1)
[2020-12-15 23:54] LABS: ALBUMIN 4.1 g/dL (3.4-5.0); ALBUMIN/GLOBULIN RATIO 1.4 (1.0-1.7); TOTAL BILIRUBIN 0.3 mg/dL (0.2-1.0); TOTAL PROTEIN 7.1 g/dL (6.4-8.2)
[2020-12-15 23:55] LABS: SALIC < 2.8 mg/dL (2.8-20.0)
[2020-12-15 23:56] LABS: ACETAMIN < 2.0 mcg/mL (10-30); ETHANOL < 10 mg/dL (0-10)
[2020-12-16 01:07] LABS: CLARITY,URINE CLEAR; COLOR,URINE COLORLESS
[2020-12-16 01:08] LABS: BACTERIA,URINE FEW /HPF (0-FEW); BILIRUBIN,URINE NEG (NEG); GLUCOSE,URINE NEG (NEG); NITRITE,URINE NEG (NEG); SQUAMOUS EPITHELIAL CELL,UR MOD /LPF; UROBILINOGEN,URINE 0.2 mg/dL (0.2 mg/dL)
[2020-12-16 02:10] VITALS: BP 130/74
--- NOTE | 2020-12-16 06:43 | EKG ---
[address] [address] Test Date: 2020-12-15 Test Time: 23:02:32 Pat Name: PEÑA AJ Department: Room: Gender: F Review Analyst: SANDRO : 2000 Requested By: SANJUANITA JAMES Order Number: [id number] Reading MD: Measurements Intervals [place] Rate: 108 P: 195 [place]: 100 QRS: 44 QRSD: 98 T: -5 QT: 362 QTc: 489 Interpretive Statements SINUS TACHYCARDIA LEFT ATRIAL ABNORMALITY LVH WITH REPOLARIZATION ABNORMALITY ABNORMAL ECG RI6.02 No previous ECG available for comparison
== END 2020-12-16 02:15 | disposition home or self-care (01) ==
LOC: ER 22:29
DX: T50.992A Poisoning by other drugs, medicaments and biological substances, intentional self-harm, initial encounter (principal); R45.851 Suicidal ideations; K21.9 Gastro-esophageal reflux disease without esophagitis; K58.9 Irritable bowel syndrome, unspecified; G43.909 Migraine, unspecified, not intractable, without status migrainosus; Z87.820 Personal history of traumatic brain injury; Z88.1 Allergy status to other antibiotic agents; Z88.8 Allergy status to other drugs, medicaments and biological substances; Y92.89 Other specified places as the place of occurrence of the external cause
CPT/HCPCS: 36415; 80053; 80329; 81001; 81025; 84484; 85025; 93005; 96360; 99285; G0480; J7120

== ENCOUNTER 2021-05-15 20:19 | Emergency (ER) | payer OTHER ==
[~2021-05-15] VITALS: Ht 157.5 cm; Wt 70.1 kg
--- NOTE | 2021-05-15 20:44 | PHYS DOC ---
Past History Past Medical History: GERD, IBS Additional Past Medical Histor: previous head injuries-concussions, traumatic brain injury (VIDAL DILLON TELEPHONE SEX WORKER) Past Surgical History: Appendectomy, Other Additional Past Surgical Histo: esophageal surgery as infant (VIDAL DILLON TELEPHONE SEX WORKER) Smoking: Non-smoker Alcohol Use: None Drug Use: None (VIDAL DILLON TELEPHONE SEX WORKER) Adult General Chief Complaint Chief Complaint: MULTIPLE COMPLAINTS [facility] HPI Patient is a 20-year-old female patient presented to the ED today with multiple complaints. Patient is complaining of sore throat, cough, body aches, chills, symptoms since Wednesday. She states she was seen by the PCP and they did a Covid test as well as influenza test which were negative. She states now her symptoms have progressed to diarrhea and nausea. Denies abdominal pain. Reports shortness of breath on exertion. She states she received her first pfizer Covid vaccine a week ago. (VIDAL DILLON TELEPHONE SEX WORKER) Review of Systems Review of Systems Constitutional: Reports body aches, denies fever Eyes: Denies change in visual acuity, redness, or eye pain [] HENT: Reports sore throat, denies denies nasal congestion [] Respiratory: Reports cough and shortness of breath [] Cardiovascular: No additional information not addressed in HPI [] GI: Reports nausea and diarrhea denies abdominal pain, vomiting, bloody stools : Denies dysuria or hematuria [] Musculoskeletal: Denies back pain or joint pain [] Integument: Denies rash or skin lesions [] Neurologic: Denies headache, focal weakness or sensory changes [] [] All other systems were reviewed and found to be within normal limits, except as documented in this note. (VIDAL DILLON TELEPHONE SEX WORKER) Allergies Allergies Allergies Coded Allergies Type Severity Reaction Last Updated Verified bacitracin Allergy Unknown 08/09/20 Yes neomycin Allergy Unknown 08/09/20 Yes polymyxin B Allergy Unknown 08/09/20 Yes (VIDAL DILLON TELEPH[employer] SEX WORKER) Physical Exam Physical Exam Constitutional: Well developed, well nourished, no acute distress, non-toxic appearance. [] HENT: Normocephalic, atraumatic, bilateral external ears normal, oropharynx moist, no oral exudates, nose normal. [] Eyes: PERRLA, EOMI, conjunctiva normal, no discharge. [] Neck: Normal range of motion, no tenderness, supple, no stridor. [] Cardiovascular:Heart rate regular rhythm, no murmur [] Lungs & Thorax: Bilateral breath sounds clear to auscultation [] Abdomen: Bowel sounds normal, soft, no tenderness, no masses, no pulsatile masses. [] Skin: Warm, dry, no erythema, no rash. [] Back: No tenderness, no CVA tenderness. [] Extremities: No tenderness, no cyanosis, no clubbing, ROM intact, no edema. [] Neurologic: Alert and oriented X 3, normal motor function, normal sensory function, no focal deficits noted. [] Psychologic: Affect normal, judgement normal, mood normal. [] (VIDAL DILLON APRN) EKG EKG [] (VIDAL DILLON APRN) Radiology/Procedures Radiology/Procedures []PROCEDURE: CHEST AP ONLY EXAM: AP View of the chest DATE: 05/15/2021 8:40 PM INDICATION: Reason: cough / Spl. Instructions: / History: COMPARISON: No Prior FINDINGS: The heart is not enlarged. Mediastinal and hilar contours are normal. No focal parenchymal airspace opacity. No pleural effusion or pneumothorax. IMPRESSION: 1. No radiographic evidence for acute cardiopulmonary process. Electronically signed by: Bradly Jones MD (05/15/2021 9:11 PM) [facility] DICTATED AND SIGNED BY: BRADLY JONES MD DATE: 05/15/212109 CC: ES LECHUGA MD; VIDAL DILLON APRN ~MTH0 0 (VIDAL DILLON APRN) Heart Score C/O Chest Pain: N/A Risk Factors: Risk Factors: DM, Current or recent (<one month) smoker, HTN, HLP, family history of CAD, obesity. Risk Scores: Risk Factors: DM, Current or recent (<one month) smoker, HTN, HLP, family history of CAD, obesity. (VIDAL DILLON APRN) Course & Med Decision Making Course & Med Decision Making Pertinent Labs and Imaging studies reviewed. (See chart for details) This is a 20-year-old female patient presenting to the ED today with multiple complaints including sore throat, body aches, chills, diarrhea, nausea, cough, symptoms since Wednesday Temp in the ED 99.9, O2 saturations 96% and above Negative rapid strep. Chest xray interpreted by radiologist is negative for any acute findings. Negative influenza A and B. Patient symptoms are likely viral. Supportive care measures recommended. Follow-up with PCP (VIDAL DILLON APRN) Beck Disclaimer Dragon Disclaimer This electronic medical record was generated, in whole or in part, using a voice recognition dictation system. (VIDAL DILLON APRN) Departure Departure: Impression: Primary Impression: Person under investigation for COVID-19 Additional Impressions: Fever Cough Diarrhea Nausea & vomiting Disposition: HOME / SELF CARE / HOMELESS Condition: STABLE Referrals: ES LECHUGA MD (PCP) follow up in one week Patient Instructions: Cough, Adult, Diarrhea, Fever, Adult, [id number] Additional Instructions: You were evaluated in the emergency room, your rapid strep test is negative. Your rapid influenza A and B test are negative, your chest x-ray is negative for any acute findings. You were tested for COVID-19. This is a PCR test. When results come back in the next 1 to 3 days we will call you. In the meantime quarantine yourself. Maintain good hygiene, push fluids, take Tylenol or Motrin for pain or fever. Please send a prescription for Zofran to your pharmacy. Scripts Ondansetron (ONDANSETRON ODT) 4 Mg Tab.rapdis 1 TAB PO PRN Q6-8HRS, #16 TAB Prov: SHERMANEbenezerVIDAL APRN 05/15/21 Attending Signature Attending Signature I have reviewed the PA/MACHINE CAGE MAKER's note and plan of care. I was available for consultation as needed during the patient's visit in the emergency department. I agree with the clinical impression, plan, and disposition. (ANDRE MANNING DO) Problem Qualifiers Additional Impressions: Fever Fever type: unspecified Qualified Codes: R50.9 - Fever, unspecified Diarrhea Diarrhea type: unspecified type Qualified Codes: R19.7 - Diarrhea, unspecified Nausea & vomiting Vomiting type: unspecified Qualified Codes: R11.2 - Nausea with vomiting, unspecified VIDAL DILLON APRN May 15, 2021 20:44 ANDRE MANNING DO May 15, 2021 21:52
[2021-05-15] MEDS ORDERED: ONDANSETRON ODT 4 MG TAB.RAPDIS PO ONE (20:45)
[2021-05-15] MEDS ORDERED: DEXAMETHASONE SOD PHOS 10 MG/ML VIAL. PO ONE (20:45)
[2021-05-15] MEDS ORDERED: ACETAMINOPHEN 500 MG TABLET PO ONE (20:45)
--- NOTE | 2021-05-15 21:13 | RAD ---
EXAM: AP View of the chest DATE: 05/15/2021 8:40 PM INDICATION: Reason: cough / Spl. Instructions: / History: COMPARISON: No Prior FINDINGS: The heart is not enlarged. Mediastinal and hilar contours are normal. No focal parenchymal airspace opacity. No pleural effusion or pneumothorax. IMPRESSION: 1. No radiographic evidence for acute cardiopulmonary process. Electronically signed by: Bradly Roth MD (05/15/2021 9:11 PM) NATALIE
[2021-05-15 21:29] LABS: INFLUENZA A PATIENT NEGATIVE (NEGATIVE); INFLUENZA B PATIENT NEGATIVE (NEGATIVE)
[2021-05-15] MEDS ORDERED: ONDA4TAB12 PO (21:32)
[2021-05-15 21:38] VITALS: BP 117/63
== END 2021-05-15 21:43 | disposition home or self-care (01) ==
LOC: ER 20:19
DX: U07.1 COVID-19 (principal); R50.9 Fever, unspecified; R19.7 Diarrhea, unspecified; R11.2 Nausea with vomiting, unspecified; K21.9 Gastro-esophageal reflux disease without esophagitis
CPT/HCPCS: 71045; 87070; 87804; 87880; 99284; C9803; J1100; Q0162; U0003

== ENCOUNTER 2021-07-01 07:52 | Emergency (ER) | payer SELFPAY ==
[~2021-07-01] VITALS: Ht 157.5 cm; Wt 70.1 kg
[~2021-07-01 07:52] MED LIST changes: +ONDA4TAB12 PO
[2021-07-01] MEDS ORDERED: MORPHINE SULFATE 4 MG/ML DISP.SYRIN. IV ONE ×2 (09:30→11:00)
[2021-07-01] MEDS ORDERED: IV NORMAL SALINE 1,000ML 1,000 ML IV ONE (09:30)
[2021-07-01] MEDS ORDERED: ONDANSETRON PF 4 MG/2 ML VIAL. IVP ONE ×2 (09:30→16:30)
--- NOTE | 2021-07-01 09:30 | PHYS DOC ---
Past History Past Medical History: GERD, IBS Additional Past Medical Histor: previous head injuries-concussions, traumatic brain injury (GREY ALLEN DO) Past Surgical History: Appendectomy, Other Additional Past Surgical Histo: esophageal surgery as infant (GREY ALLEN DO) Smoking: Non-smoker Alcohol Use: None Drug Use: None (GREY ALLEN DO) Adult General Chief Complaint Chief Complaint: ABDOMINAL PAIN HPI HPI Patient is a 21 year old female who presents with abdominal pain for the last 6 days that began on . It is mainly located in her LLQ and umbilicus region but also occasionally radiates up to her left shoulder. It is cramping in nature. She also reports diarrhea during this time with occasional red blood present in her stool. She endorses some nausea and vomiting, but reports being able to keep some food and drink down. When the pain started she did take some laxatives, but notes this did not help the pain. She has a history of IBS but reports that she normally is constipated, and this pain is not similar to her normal IBS pains. She denies fever and sick contacts. Her LMP was on 06/12 and is taking OCP. She does not think she could be . She has never been scoped for her IBS. 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 See HPI for pertinent positives and negative responses, other ahuja all other systems are negative, non-pertinent or non-contributory (GREY ALLEN DO) Allergies Allergies Allergies Coded Allergies Type Severity Reaction Last Updated Verified bacitracin Allergy Unknown 08/09/20 Yes neomycin Allergy Unknown 08/09/20 Yes polymyxin B Allergy Unknown 08/09/20 Yes (GREY ALLEN DO) Physical Exam Physical Exam Constitutional: Well developed, well nourished, moderate distress due to pain but overall non-toxic in appearance. HENT: Normocephalic, atraumatic, bilateral external ears normal, oropharynx moist, no oral exudates, nose normal. Eyes: PERRLA, EOMI, conjunctiva normal, no discharge. Neck: Normal range of motion, no tenderness, supple, no stridor. Cardiovascular: Heart rate regular, sinus rhythm, no murmurs rubs or gallops Lungs & Thorax: Bilateral breath sounds clear to auscultation Abdomen: Bowel sounds normal, soft, generalized abdominal tenderness most focal to epigastric and left lower quadrant regions with voluntary guarding, no rebound, no masses, no pulsatile masses. Nonsurgical abdomen, no peritoneal signs Skin: Warm, dry, no erythema, no rash. Back: No tenderness, no CVA tenderness. Extremities: No tenderness, no cyanosis, no clubbing, ROM intact, no edema. Neurologic: Alert and oriented X 3, grossly normal motor & sensory function, no focal deficits noted. Psychologic: Anxious affect and mood (GREY ALLEN DO) Current Patient Data Vital Signs Vital Signs Date Time Temp Pulse Resp B/P (MAP) Pulse Ox O2 Delivery O2 Flow Rate FiO2 07/01/21 08:17 98.2 83 16 136/96 (109) 98 Room Air Vital Signs Date Time Temp Pulse Resp B/P (MAP) Pulse Ox O2 Delivery O2 Flow Rate FiO2 07/01/21 16:30 16 97 07/01/21 16:00 77 127/58 (81) Room Air 07/01/21 08:17 98.2 Lab Results Laboratory Tests Test 07/01/21 08:55 07/01/21 09:03 07/01/21 09:40 07/01/21 11:39 Urine Collection Type Unknown Urine Color Yellow Urine Clarity Clear Urine pH 6.5 Urine Specific Means 1.025 Urine Protein Neg Urine Glucose (UA) Neg mg/dL Urine Ketones (Stick) Neg mg/dL Urine Blood Neg Urine Nitrite Neg Urine Bilirubin Neg Urine Urobilinogen Dipstick 0.2 mg/dL Urine Leukocyte Esterase Neg Urine RBC 1-2 /HPF Urine WBC 5-10 /HPF Urine Squamous Epithelial Cells Many /LPF Urine Bacteria Mod /HPF Bedside Urine HCG, Qualitative hcg negative White Blood Count 5.2 x10^3/uL Red Blood Count 4.06 x10^6/uL Hemoglobin 13.1 g/dL Hematocrit 37.7 % Mean Corpuscular Volume 93 fL Mean Corpuscular Hemoglobin 32 pg Mean Corpuscular Hemoglobin Concent 35 g/dL Red Cell Distribution Width 12.7 % Platelet Count 233 x10^3/uL Neutrophils (%) (Auto) 54 % Lymphocytes (%) (Auto) 37 % Monocytes (%) (Auto) 6 % Eosinophils (%) (Auto) 3 % Basophils (%) (Auto) 1 % Neutrophils # (Auto) 2.8 x10^3uL Lymphocytes # (Auto) 1.9 x10^3/uL Monocytes # (Auto) 0.3 x10^3/uL Eosinophils # (Auto) 0.2 x10^3/uL Basophils # (Auto) 0.0 x10^3/uL Sodium Level 140 mmol/L Potassium Level 4.2 mmol/L Chloride Level 106 mmol/L Carbon Dioxide Level 24 mmol/L Anion Gap 10 Blood Urea Nitrogen 10 mg/dL Creatinine 0.7 mg/dL Estimated GFR (Cockcroft-Gault) 104.6 BUN/Creatinine Ratio 14 Glucose Level 93 mg/dL Calcium Level 8.4 mg/dL Total Bilirubin 0.1 mg/dL Aspartate Amino Transf (AST/SGOT) 13 U/L Alanine Aminotransferase (ALT/SGPT) 11 U/L Alkaline Phosphatase 67 U/L Total Protein 6.4 g/dL Albumin 3.3 g/dL Albumin/Globulin Ratio 1.1 Lipase 67 U/L SARS-CoV-2 Antigen (Rapid) Negative Current Medications Medications (Trade) Dose Ordered Sig/Venkat Route PRN Reason Start Time Stop Time Status Last Admin Dose Admin Sodium Chloride 1,000 ml @ 1,000 mls/hr 1X ONCE IV 07/01/21 09:30 07/01/21 10:29 DC 07/01/21 09:45 Ondansetron HCl (Zofran) 4 mg 1X ONCE IVP 07/01/21 09:30 07/01/21 09:34 DC 07/01/21 09:45 Morphine Sulfate (Morphine 4mg Syringe) 4 mg 1X ONCE IV 07/01/21 09:30 07/01/21 09:34 DC 07/01/21 09:45 Iohexol (Omnipaque 300 Mg/ml) 75 ml 1X ONCE IV 07/01/21 09:45 07/01/21 09:47 DC 07/01/21 10:01 Info (Do NOT chart on this entry -- for MONITORING) 1 each PRN DAILY PRN MC SEE COMMENTS 07/01/21 10:00 07/03/21 09:59 Morphine Sulfate (Morphine 4mg Syringe) 4 mg 1X ONCE IV 07/01/21 11:00 07/01/21 11:01 DC 07/01/21 10:58 Albuterol Sulfate (Ventolin Hfa Inhaler) 1 puff 1X ONCE INH 07/01/21 11:00 07/01/21 11:01 DC Hydromorphone HCl (Dilaudid) 0.5 mg 1X ONCE IVP 07/01/21 12:45 07/01/21 12:46 DC 07/01/21 12:57 Hydromorphone HCl (Dilaudid) 0.5 mg 1X ONCE IVP 07/01/21 16:30 07/01/21 16:31 DC 07/01/21 16:30 Ondansetron HCl (Zofran) 4 mg 1X ONCE IVP 07/01/21 16:30 07/01/21 16:31 DC 07/01/21 16:30 (GREY ALLEN DO) EKG EKG [] (GREY ALLEN DO) Radiology/Procedures Radiology/Procedures CT ABDOMEN+PELVIS W History: Epigastric, left lower quadrant pain. Comparison: None. Technique: CT abdomen and pelvis with intravenous contrast. Findings: The lung bases are clear. The liver, gallbladder, pancreas, spleen, adrenal glands, and kidneys are unremarkable. The bladder is within normal limits. The uterus and adnexa are within normal limits. The stomach and proximal small bowel are unremarkable. There is mild fluid distention of the distal ileal bowel loops in the central pelvis with a few foci of abrupt small bowel narrowing which may represent transition points. Somewhat fecalized terminal ileum extending to the cecum without evidence of obstruction of the terminal ileum. Technique: A is unremarkable. No intra-abdominal free air or significant free fluid. Vasculature is within normal limits. No adenopathy. The soft tissues are unremarkable. No acute osseous abnormality. Transitional lumbosacral anatomy. Impression: 1. Mild fluid distention of a distal ileal small bowel loop in the pelvis with proximal and distal foci of narrowing concerning for possible closed loop obstruction. No significant proximal small bowel dilation may indicate early onset versus nonobstructive pathology. Recommend close clinical and imaging follow-up. (GREY ALLEN DO) Heart Score C/O Chest Pain: No Risk Factors: Risk Factors: DM, Current or recent (<one month) smoker, HTN, HLP, family history of CAD, obesity. Risk Scores: Risk Factors: DM, Current or recent (<one month) smoker, HTN, HLP, family history of CAD, obesity. (GREY ALLEN DO) Course & Med Decision Making Course & Med Decision Making ABCs unremarkable HPI physical exam and comprehensive ER work-up concerning for potential closed- loop obstruction given history of appendectomy and esophageal in for abdominal surgeries with intra-abdominal adhesions likely Patient symptoms improved with administered IV fluid, nausea and pain medication. Nonetheless, this did not fully resolve patient's condition As such, hospitalist and attending surgeon at [facility] contacted, it was advised that patient be transferred down for continued medical management and serial abdominal exams without any immediate indication for NG tube placement and/or emergent surgery I updated patient on conversations and entirety of ER work-up, she was amenable to hospital transfer as discussed, all questions and concerns addressed prior to hospital transfer to [facility] for admission At time of my shift ending, comprehensive signout given to oncoming physician. Please defer to Dr. James's documentation regarding future care of patient in ER pending hospital transfer (GREY ALLEN DO) Course & Med Decision Making Patient care assumed at checkout and at that time patient awake alert and oriented in no acute distress. Given repeat pain and nausea medicine. After approximately 12 hours in the emergency department waiting for room placement, patient decided to leave AMA. Had long discussions with patient and patient's significant other with ED nurse in the room as witness. Discussed the risks involved of leaving with a bowel obstruction including increased pain, increased nausea worsening obstruction, bowel perforation and need for emergency surgery, sepsis, disability and . Both patient, patient spouse verbalized and understood risks and decided to leave AMA stating they really go home, go to bed and go to [facility] emergency department in the morning. Gave strict return precautions to the emergency department. (SANJUANITA JAMES MD) Dragon Disclaimer Dragon Disclaimer This electronic medical record was generated, in whole or in part, using a voice recognition dictation system. (GREY ALLEN DO) Departure Departure: Impression: Primary Impression: Bowel obstruction Disposition: [facility] ([facility]) Admitting Physician: Other (dr laurent) (GREY ALLEN DO) Condition: GUARDED Referrals: ES LECHUGA MD (PCP) Patient Instructions: Small Bowel Obstruction Additional Instructions: Thank you for coming into the emergency department tonight and allowing us to take care of you. Please read the attached information very carefully to go back over things we discussed. As discussed, if you leave there are serious risks involved including but not limited to increased pain, increased nausea, worsening bowel obstruction, bowel perforation, need for emergency surgery, sepsis and bacteremia, temporary or permanent disability and . We discussed this in the presence of your significant other, and ED nurse and you verbalized understanding of these risks and decided to go home AGAINST MEDICAL ADVICE. He stated that you are going to go home, go to bed and go to the [facility] emergency department first thing in the morning. Please try to not eat or drink anything until you present to the emergency department in the morning especially food. If you need to take some medicines for pain or nausea please keep the fluid minimal and chew on ice chips. Please come back to the emergency department immediately with new or concerning symptoms as we discussed. GREY ALLEN DO Jul 01, 2021 09:30 SANJUANITA JAMES MD Jul 01, 2021 19:53
[2021-07-01 09:38] LABS: BACTERIA,URINE MOD /HPF (0-FEW); BILIRUBIN,URINE NEG (NEG); CLARITY,URINE CLEAR; COLOR,URINE YELLOW; GLUCOSE,URINE NEG (NEG); NITRITE,URINE NEG (NEG); SQUAMOUS EPITHELIAL CELL,UR MANY /LPF; UROBILINOGEN,URINE 0.2 mg/dL (0.2 mg/dL)
[2021-07-01] MEDS ORDERED: IOHEXOL 300 MG/ML 75 ML VIAL. IV ONE (09:45)
[2021-07-01 09:51] LABS: BASO % 1 % (0-3); EOS # 0.2 x10^3/uL (0.0-0.7); EOS % 3 % (0-3); HEMATOCRIT 37.7 % (36.0-47.0); HEMOGLOBIN 13.1 g/dL (12.0-15.5); LYMPH # 1.9 x10^3/uL (1.0-4.8); LYMPH % 37 % (24-48); MEAN CORPUSCULAR HEMOGLOBIN 32 pg (25-35); MEAN CORPUSCULAR HGB CONC 35 g/dL (31-37); MEAN CORPUSCULAR VOLUME 93 fL (79-100); MONO # 0.3 x10^3/uL (0.0-1.1); MONO % 6 % (0-9); NEUT # 2.8 x10^3uL (1.8-7.7); NEUT % 54 % (31-73); PLATELET COUNT 233 x10^3/uL (140-400); RED BLOOD COUNT 4.06 x10^6/uL (3.50-5.40); RED CELL DISTRIBUTION WIDTH 12.7 % (11.5-14.5); WHITE BLOOD COUNT 5.2 x10^3/uL (4.0-11.0)
[2021-07-01 09:58] LABS: CALCIUM 8.4 mg/dL (8.5-10.1); CREATININE 0.7 mg/dL (0.6-1.0); GFR 104.6; POTASSIUM 4.2 mmol/L (3.5-5.1)
[2021-07-01] MEDS ORDERED: CONTRAST GIVEN. MC PRN (10:00)
[2021-07-01 10:03] LABS: ALBUMIN 3.3 g/dL (3.4-5.0); ALBUMIN/GLOBULIN RATIO 1.1 (1.0-1.7); TOTAL BILIRUBIN 0.1 mg/dL (0.2-1.0); TOTAL PROTEIN 6.4 g/dL (6.4-8.2)
--- NOTE | 2021-07-01 10:22 | RAD ---
CT ABDOMEN+PELVIS W History: Epigastric, left lower quadrant pain. Comparison: None. Technique: CT abdomen and pelvis with intravenous contrast. Findings: The lung bases are clear. The liver, gallbladder, pancreas, spleen, adrenal glands, and kidneys are u nremarkable. The bladder is within normal limits. The uterus and adnexa are within normal limits. The stomach and proximal small bowel are unremarkable. There is mild fluid distention of the distal i abernathy bowel loops in the central pelvis with a few foci of abrupt small bowel narrowing which may repr esent transition points. Somewhat fecalized terminal ileum extending to the cecum without evidence of obstruction of the terminal ileum. Technique: A is unremarkable. No intra-abdominal free air or sign ificant free fluid. Vasculature is within normal limits. No adenopathy. The soft tissues are unremarkable. No acute osseo us abnormality. Transitional lumbosacral anatomy. Impression: 1. Mild fluid distention of a distal ileal small bowel loop in the pelvis with proximal and distal f oci of narrowing concerning for possible closed loop obstruction. No significant proximal small bowel dilation may indicate early onset versus nonobstructive pathology. Recommend close clinical and imag ing follow-up. ------ Exposure: One or more of the following individualized dose reduction techniques were utilized for thi s examination: 1. Automated exposure control 2. Adjustment of the mA and/or kV according to patient size 3. Use of iterative reconstruction technique. Electronically signed by: Adama Crowder MD (07/01/2021 10:19 AM) [id number]
[2021-07-01] MEDS ORDERED: ALBUTEROL SULFATE 8GM INHALER. INH ONE (11:00)
[2021-07-01] MEDS ORDERED: HYDROmorphone PF 1 MG/ML DISP.SYRIN IVP ONE ×2 (12:45→16:30)
[2021-07-01 18:00] VITALS: BP 125/62
[2021-07-01] MEDS ORDERED: METOCLOPRAMIDE HCL 10 MG/2 ML VIAL. IVP ONE (19:00)
[2021-07-01] MEDS ORDERED: MORPHINE SULFATE 10 MG/ML SYRINGE. IM ONE (19:15)
[2021-07-01] MEDS ORDERED: IV NORMAL SALINE 50ML 50 ML ONE (19:55)
[2021-07-01] MEDS ORDERED: cefTRIAXone SODIUM 1 GM VIAL ONE (19:56)
[2021-07-01] MEDS ORDERED: ONDANSETRON 4MG ODT 4TABLET STARTPACK. PO ONE (20:00)
[2021-07-01] MEDS ORDERED: ACETAMINOPHEN/CODEINE 300/30MG 4TABLET STARTPACK. PO ONE (20:00)
== END 2021-07-01 20:10 | disposition short-term general hospital (02) ==
LOC: ER 07:52
DX: K56.609 Unspecified intestinal obstruction, unspecified as to partial versus complete obstruction (principal); Z20.822 Contact with and (suspected) exposure to COVID-19; K21.9 Gastro-esophageal reflux disease without esophagitis; K58.9 Irritable bowel syndrome, unspecified; Z90.89 Acquired absence of other organs; Z88.1 Allergy status to other antibiotic agents
CPT/HCPCS: 36415; 74177; 80053; 81001; 81025; 83690; 85025; 87086; 87426; 96361; 96372; 96374; 96375; 96376; 99285; C9803; J0696; J1170; J2270; J2405; J2765; J7030; Q0162; Q9967; U0003

== ENCOUNTER 2021-07-15 14:08 | Emergency (ER) | payer SELFPAY ==
[~2021-07-15] VITALS: Ht 157.5 cm; Wt 69.8 kg
[2021-07-15] MEDS ORDERED: DICYCLOMINE 20 MG/2 ML VIAL. IM ONE (15:15)
[2021-07-15] MEDS ORDERED: IV NORMAL SALINE 1,000ML 1,000 ML IV ONE (15:15)
[2021-07-15] MEDS ORDERED: ONDANSETRON PF 4 MG/2 ML VIAL. IVP ONE (15:15)
--- NOTE | 2021-07-15 15:22 | PHYS DOC ---
Past History Past Medical History: GERD, IBS Additional Past Medical Histor: previous head injuries-concussions, traumatic brain injury (DARINEL HAAS APRN) Past Surgical History: Appendectomy, Other Additional Past Surgical Histo: esophageal surgery as infant (DARINEL HAAS APRN) Smoking: Non-smoker Alcohol Use: None Drug Use: None (DARINEL HAAS APRN) General Adult EDM: Chief Complaint: ABDOMINAL PAIN HPI: HPI: Patient is a 21-year-old female who presents to the emergency department for chronic abdominal pain. Patient was seen at [facility] on 02 July and admitted for possible ileus. Patient was evaluated by GI and surgery, the ileus resolved on its own without treatment with an NG tube. Patient was discharged home on July 04 and returned to [facility] on July 05 where I saw her for abdominal pain. Her work-up was unremarkable at that time and she did have a bowel movement in the emergency department. Patient reports that she went to [facility] for second opinion following that visit and they also told her that nothing was wrong with her. I advised the patient to take MiraLAX and follow-up with GI. Patient reports that she still having intermittent pain with passing flatus and bowel movements. She reports nausea without vomiting. Her last bowel movement was today and she reports that it was loose. Patient denies any blood in her stools or vomit, vomiting, fevers, urinary complaints. (DARINEL HAAS APRN) Review of Systems: Review of Systems: Constitutional: See HPI GI: See HPI : See HPI (DARINEL HAAS APRN) Current Medications: Current Meds: Current Medications Medications (Trade) Dose Ordered Sig/Venkat Start Time Stop Time Status Last Admin Dose Admin Dicyclomine HCl (Bentyl) 10 mg 1X ONCE 07/15/21 15:15 07/15/21 15:16 UNV Ondansetron HCl (Zofran) 4 mg 1X ONCE 07/15/21 15:15 07/15/21 15:16 UNV Sodium Chloride 1,000 ml @ 1,000 mls/hr 1X ONCE 07/15/21 15:15 07/15/21 16:14 UNV (DARINEL HAAS APRN) Allergies: Allergies: Allergies Coded Allergies Type Severity Reaction Last Updated Verified bacitracin Allergy Unknown 08/09/20 Yes neomycin Allergy Unknown 08/09/20 Yes polymyxin B Allergy Unknown 08/09/20 Yes (DARINEL HAAS APRN) Physical Exam: PE: Constitutional: Well developed, well nourished, no acute distress, non-toxic appearance. [] HENT: Normocephalic, atraumatic, bilateral external ears normal, oropharynx moist, no oral exudates, nose normal. [] Eyes: PERRL, EOMI, conjunctiva normal, no discharge. [] Neck: Normal range of motion, no stridor Cardiovascular:Heart rate regular rhythm, no murmur [] Lungs & Thorax: Bilateral breath sounds clear to auscultation [] Abdomen: Bowel sounds normal, soft, no abdominal rigidity or guarding, pain with palpation to left upper and lower quadrant, no rebound tenderness, negative Jo sign, negative Rovsing sign, no masses, no pulsatile masses. [] Skin: Warm, dry, no erythema, no rash. [] Back: Normal range of motion Extremities: No tenderness, no cyanosis, no clubbing, ROM intact, no edema. [] Neurologic: Alert and oriented X 3, normal motor function, normal sensory function, no focal deficits noted. [] Psychologic: Affect normal, judgement normal, mood normal. [] (DARINEL HAAS APRN) Current Patient Data: Labs: Laboratory Tests Test 07/15/21 15:55 07/15/21 16:08 07/15/21 16:35 White Blood Count 7.5 x10^3/uL Red Blood Count 4.27 x10^6/uL Hemoglobin 13.8 g/dL Hematocrit 39.9 % Mean Corpuscular Volume 93 fL Mean Corpuscular Hemoglobin 32 pg Mean Corpuscular Hemoglobin Concent 35 g/dL Red Cell Distribution Width 12.2 % Platelet Count 251 x10^3/uL Neutrophils (%) (Auto) 64 % Lymphocytes (%) (Auto) 29 % Monocytes (%) (Auto) 5 % Eosinophils (%) (Auto) 2 % Basophils (%) (Auto) 1 % Neutrophils # (Auto) 4.8 x10^3uL Lymphocytes # (Auto) 2.1 x10^3/uL Monocytes # (Auto) 0.4 x10^3/uL Eosinophils # (Auto) 0.1 x10^3/uL Basophils # (Auto) 0.0 x10^3/uL Urine Collection Type Unknown Urine Color Yellow Urine Clarity Clear Urine pH 7.0 Urine Specific [place] 1.020 Urine Protein Neg Urine Glucose (UA) Neg mg/dL Urine Ketones (Stick) Neg mg/dL Urine Blood Neg Urine Nitrite Neg Urine Bilirubin Neg Urine Urobilinogen Dipstick 0.2 mg/dL Urine Leukocyte Esterase Neg Urine RBC 0 /HPF Urine WBC 1-4 /HPF Urine Squamous Epithelial Cells Few /LPF Urine Bacteria Few /HPF Bedside Urine HCG, Qualitative hcg negative Sodium Level 139 mmol/L Potassium Level 3.9 mmol/L Chloride Level 104 mmol/L Carbon Dioxide Level 26 mmol/L Anion Gap 9 Blood Urea Nitrogen 11 mg/dL Creatinine 0.6 mg/dL Estimated GFR (Cockcroft-Gault) 125.0 BUN/Creatinine Ratio 18 Glucose Level 70 mg/dL Calcium Level 8.3 mg/dL Total Bilirubin 0.3 mg/dL Aspartate Amino Transf (AST/SGOT) 21 U/L Alanine Aminotransferase (ALT/SGPT) 18 U/L Alkaline Phosphatase 70 U/L Total Protein 6.3 g/dL Albumin 3.4 g/dL Albumin/Globulin Ratio 1.2 Lipase 45 U/L Current Medications Medications (Trade) Dose Ordered Sig/Venkat Route PRN Reason Start Time Stop Time Status Last Admin Dose Admin Dicyclomine HCl (Bentyl) 10 mg 1X ONCE IM 07/15/21 15:15 07/15/21 15:24 DC 07/15/21 16:09 Sodium Chloride 1,000 ml @ 1,000 mls/hr 1X ONCE IV 07/15/21 15:15 07/15/21 16:14 DC 07/15/21 16:11 Ondansetron HCl (Zofran) 4 mg 1X ONCE IVP 07/15/21 15:15 07/15/21 15:24 DC 07/15/21 16:11 Fentanyl Citrate (Fentanyl 2ml Vial) 50 mcg 1X ONCE IVP 07/15/21 16:45 07/15/21 16:40 DC Ketorolac Tromethamine (Toradol 30mg Vial) 30 mg 1X ONCE IVP 07/15/21 16:45 07/15/21 16:48 DC (DARINEL HAAS APRN) EKG: EKG: [] (DARINEL HAAS APRN) Radiology/Procedures: Radiology/Procedures: []PROCEDURE: ACUTE ABDOMEN SERIES Single AP view the chest as well as 2 views of the abdomen. Comparison: none Indication :Left upper and lower quadrant pain Findings: The heart is not enlarged. No pneumothorax, effusion, airspace or interstitial disease. The bowel gas pattern is unremarkable. The bony structures are unremarkable. No abnormal calcification or organomegaly. Impression: 1. Unremarkable plain film examination of the chest and abdomen. Electronically signed by: Faisal Argueta MD (07/15/2021 3:30 PM) [facility] DICTATED AND SIGNED BY: FAISAL ARGUETA MD DATE: 07/15/21 1530 CC: EMERGENCY,DEPARTMENT; ES LECHUGA MD; DARINEL HAAS APRN ~MTH0 0 (DARINEL HAAS APRN) Heart Score: C/O Chest Pain: N/A Risk Factors: Risk Factors: DM, Current or recent (<one month) smoker, HTN, HLP, family history of CAD, obesity. Risk Scores: Score 0 - 3: 2.5% MACE over next 6 weeks - Discharge Home Score 4 - 6: 20.3% MACE over next 6 weeks - Admit for Clinical Observation Score 7 - 10: 72.7% MACE over next 6 weeks - Early Invasive Strategies (DARINEL HAAS APRN) Course & Med Decision Making: Course & Med Decision Making Pertinent Labs and Imaging studies reviewed. (See chart for details) Patient presents to the emergency department for chronic abdominal pain that has been going on since July 02 after she was admitted at [facility] for a possible ileus that resolved on its own. Patient has been evaluated multiple times at [facility] in this facility as well as [facility] facility. Patient has had several CT scans for this chronic abdominal pain. Patient also voices her concern over the number of CT scans that she has had for this complaint. Patient reports that she has a follow-up appointment wit h GI but she cannot make up the thousand dollars required to see the provider because she does not have insurance. Work-up in the ER consisted of blood work, urinalysis and acute abdomen series. Patient will be treated with IV fluids, nausea medication, IM Bentyl and pain medication. Discussed case with supervising physician. Patients work up in unremarkable. Patient advised to ta ke pain medication prescribed for her at home and follow up with GI, she was also given info for clinic for patients without insurance. I discussed with patient all findings and diagnostic testing as well as the need to follow-up with PCP for further evaluation and treatment or return to the ER if any new or worsening symptoms. Strict return precautions were also discussed at length. Patient voiced understanding and agreement with the plan. Patient is hemodynamically stable at the time of disposition. (DARINEL HAAS APRN) Dragon Disclaimer: Dragon Disclaimer: This electronic medical record was generated, in whole or in part, using a voice recognition dictation system. (DARINEL HAAS APRN) Attending Co-Sign The patient was seen and interviewed as well as examined at the bedside. The chart was reviewed. The case was discussed. Agree with the plan of care. (SHANNAN LORENZANA DO) Departure Departure: Impression: Primary Impression: Abdominal pain Qualified Codes: R10.32 - Left lower quadrant pain Disposition: HOME / SELF CARE / HOMELESS Condition: GOOD Referrals: ES LECHUGA MD (PCP) BRYON JOHNSON MD Patient Instructions: Abdominal Pain (Nonspecific) Additional Instructions: You are seen in the emergency department today for chronic abdominal pain. Your work-up in the ER was unremarkable. You are being discharged home with pain medication that he can take as needed. Increase your fluids. Please follow-up with the GI doctor soon as possible. You are also given information on a discounted clinic for patients without insurance that you can follow-up with. Please call them tomorrow to set up a follow-up appointment. Return to the emergency department if you develop worsening of your abdominal pain, blood in your stools or vomit, tractable nausea or vomiting, high fevers refractory to treatment. Scripts Dicyclomine Hcl (DICYCLOMINE HCL) 20 Mg Tablet 1 TAB PO QID for abdominal pain for 7 Days, #28 TAB 0 Refills Prov: DARINEL HAAS APRN 07/15/21 DARINEL HAAS APRN Jul 15, 2021 15:22 SHANNAN LORENZANA DO Jul 16, 2021 06:16
--- NOTE | 2021-07-15 15:33 | RAD ---
Single AP view the chest as well as 2 views of the abdomen. Comparison: none Indication :Left upper and lower quadrant pain Findings: The heart is not enlarged. No pneumothorax, effusion, airspace or interstitial disease. The bowel gas pattern is unremarkable. The bony structures are unremarkable. No abnormal calcificatio n or organomegaly. Impression: 1. Unremarkable plain film examination of the chest and abdomen. Electronically signed by: Faisal Argueta MD (07/15/2021 3:30 PM) [facility]
[2021-07-15 16:24] LABS: BASO % 1 % (0-3); EOS # 0.1 x10^3/uL (0.0-0.7); EOS % 2 % (0-3); HEMATOCRIT 39.9 % (36.0-47.0); HEMOGLOBIN 13.8 g/dL (12.0-15.5); LYMPH # 2.1 x10^3/uL (1.0-4.8); LYMPH % 29 % (24-48); MEAN CORPUSCULAR HEMOGLOBIN 32 pg (25-35); MEAN CORPUSCULAR HGB CONC 35 g/dL (31-37); MEAN CORPUSCULAR VOLUME 93 fL (79-100); MONO # 0.4 x10^3/uL (0.0-1.1); MONO % 5 % (0-9); NEUT # 4.8 x10^3uL (1.8-7.7); NEUT % 64 % (31-73); PLATELET COUNT 251 x10^3/uL (140-400); RED BLOOD COUNT 4.27 x10^6/uL (3.50-5.40); RED CELL DISTRIBUTION WIDTH 12.2 % (11.5-14.5); WHITE BLOOD COUNT 7.5 x10^3/uL (4.0-11.0)
[2021-07-15 16:41] LABS: CLARITY,URINE CLEAR; COLOR,URINE YELLOW; GLUCOSE,URINE NEG (NEG)
[2021-07-15 16:42] LABS: BACTERIA,URINE FEW /HPF (0-FEW); NITRITE,URINE NEG (NEG); RBC,URINE 0 /HPF (0-2); SQUAMOUS EPITHELIAL CELL,UR FEW /LPF; UROBILINOGEN,URINE 0.2 mg/dL (0.2 mg/dL)
[2021-07-15] MEDS ORDERED: KETOROLAC 30 MG/ML VIAL. IVP ONE (16:45)
[2021-07-15 17:15] LABS: ALBUMIN 3.4 g/dL (3.4-5.0); ALBUMIN/GLOBULIN RATIO 1.2 (1.0-1.7); CALCIUM 8.3 mg/dL (8.5-10.1); CREATININE 0.6 mg/dL (0.6-1.0); POTASSIUM 3.9 mmol/L (3.5-5.1); TOTAL BILIRUBIN 0.3 mg/dL (0.2-1.0); TOTAL PROTEIN 6.3 g/dL (6.4-8.2)
[2021-07-15] MEDS ORDERED: DICY20TA PO (17:27)
[2021-07-15 17:56] VITALS: BP 117/80
== END 2021-07-15 17:56 | disposition home or self-care (01) ==
LOC: ER 14:08
DX: R10.32 Left lower quadrant pain (principal); R10.12 Left upper quadrant pain; G89.29 Other chronic pain; K21.9 Gastro-esophageal reflux disease without esophagitis; Z90.89 Acquired absence of other organs; Z88.1 Allergy status to other antibiotic agents; Z88.8 Allergy status to other drugs, medicaments and biological substances
CPT/HCPCS: 36415; 74022; 80053; 81001; 81025; 83690; 85025; 96361; 96372; 96374; 96375; 99284; J0500; J1885; J2405; J7030

== ENCOUNTER 2021-09-27 21:15 | Emergency (ER) | payer OTHER ==
[~2021-09-27] VITALS: Ht 157.5 cm; Wt 69.5 kg
[~2021-09-27 21:15] MED LIST changes: +DICY20TA PO; -OMEP20TA8 PO; +OMEP20TA91 PO
--- NOTE | 2021-09-27 21:43 | PHYS DOC ---
Past History Past Medical History: GERD, IBS Additional Past Medical Histor: previous PEPPER Past Surgical History: Appendectomy Additional Past Surgical Histo: esophageal surgery as infant Smoking: Non-smoker Alcohol Use: Rarely Drug Use: None Social History Narrative: rarely Adult General Chief Complaint Chief Complaint: ABDOMINAL PAIN HPI HPI Patient is a 21-year-old female who presents with a chief complaint of abdominal pain, periumbilical in nature, dull and achy, 5 out of 10, with some mild na usea. States she also suffers from constipation. States she did have a normal bowel movement this morning. Denies any recent travels, traumas, illnesses, fevers, chest pain, shortness of breath, dysuria, hematuria, blood in the stool or diarrhea. Denies more than 3-4 alcoholic drinks a week. Review of Systems Review of Systems Review of systems otherwise unremarkable except noted in HPI Allergies Allergies Allergies Coded Allergies Type Severity Reaction Last Updated Verified bacitracin Allergy Unknown 08/09/20 Yes neomycin Allergy Unknown 08/09/20 Yes polymyxin B Allergy Unknown 08/09/20 Yes Physical Exam Physical Exam Constitutional: Well developed, well nourished, no acute distress, non-toxic appearance. [] HENT: Normocephalic, atraumatic, bilateral external ears normal, oropharynx moist, no oral exudates, nose normal. [] Eyes: conjunctiva normal, no discharge. [] Neck: Normal range of motion, no tenderness, supple, no stridor. [] Cardiovascular:Heart rate regular rhythm, no murmur [] Lungs & Thorax: No respiratory distress Abdomen: soft, no tenderness, no masses, no pulsatile masses. [] Skin: Warm, dry, no erythema, no rash. [] Back: no CVA tenderness. [] Extremities: No tenderness, no cyanosis, no clubbing, ROM intact, no edema. [] Neurologic: Alert and oriented X 3, no focal deficits noted. [] Psychologic: Affect normal, judgement normal, mood normal. [] Current Patient Data Vital Signs Vital Signs Date Time Temp Pulse Resp B/P (MAP) Pulse Ox O2 Delivery O2 Flow Rate FiO2 09/27/21 21:30 97.7 73 20 119/70 (86) 100 Room Air EKG EKG [] Radiology/Procedures Radiology/Procedures [] Heart Score C/O Chest Pain: No Risk Factors: Risk Factors: DM, Current or recent (<one month) smoker, HTN, HLP, family hi story of CAD, obesity. Risk Scores: Risk Factors: DM, Current or recent (<one month) smoker, HTN, HLP, family history of CAD, obesity. Course & Med Decision Making Course & Med Decision Making Patient is an otherwise healthy 21-year-old female who presents with abdominal pain Vital signs nonconcerning. Physical exam noted above. Given medicines for symptom control. Urinalysis nonconcerning. Negative . CT notable for hepatic steatosis and moderate stool. Discussed all findings with patient. Discussed symptom management at home. Advised to follow-up in the morning with primary care physician Gave return precautions to the ED. Patient grateful, verbalized understanding and agreed with plan of discharge. [] Dragon Disclaimer Dragon Disclaimer This electronic medical record was generated, in whole or in part, using a voice recognition dictation system. Departure Departure: Impression: Primary Impression: Abdominal pain Additional Impressions: Fatty liver Constipation Disposition: HOME / SELF CARE / HOMELESS Condition: STABLE Referrals: ES LECHUGA MD (PCP) Patient Instructions: Constipation, Adult, Diet and Irritable Bowel Syndrome Additional Instructions: Thank you for coming into the emergency department tonight and allowing us to take care of you. Please read the attached information carefully to go over things we discussed. You can continue Tylenol, ibuprofen and Benadryl at home as needed. Please stay well-hydrated. Over the next couple of days eat a light clear diet as we discussed. You can use [id number] stool softeners as well. Please follow-up in the morning with your primary care physician update on your ED visit and set up a follow-up as soon as you can. Please come back with new or concerning symptoms as discussed. Problem Qualifiers SANJUANITA JAMES MD Sep 27, 2021 21:43
[2021-09-27] MEDS: diphenhydrAMINE HCL 25 MG CAPSULE PO ONE ×2 (21:45→21:51)
[2021-09-27 22:25] LABS: CLARITY,URINE CLEAR; COLOR,URINE YELLOW; GLUCOSE,URINE NEG (NEG)
[2021-09-27 22:26] LABS: BACTERIA,URINE 0 /HPF (0-FEW); NITRITE,URINE NEG (NEG); RBC,URINE 0 /HPF (0-2); SQUAMOUS EPITHELIAL CELL,UR MOD /LPF; UROBILINOGEN,URINE 0.2 mg/dL (0.2 mg/dL); WBC,URINE OCC /HPF (0-4)
[2021-09-27] MEDS ORDERED: KETOROLAC 60 MG/2 ML VIAL. IM ONE (22:30)
--- NOTE | 2021-09-27 22:37 | RAD ---
CT ABDOMEN+PELVIS WO History: Periumbilical abdominal pain. Comparison: 07/01/2021. Technique: CT of the abdomen and pelvis without contrast. Findings: The lung bases are clear. There is diffuse mild hypoattenuation of the liver compatible steatosis. The gallbladder, pancreas, s pleen, adrenal glands, and kidneys are unremarkable. The stomach and small bowel are within normal limits. Postsurgical changes at the cecum from prior ap pendectomy. The colon is unremarkable. No pericolonic inflammatory changes. The bladder is decompressed. The uterus and adnexa are within normal limits. No free intraperitoneal fluid or air. The unenhanced vasculature is unremarkable. Soft tissues are within normal limits. Ther e is transitional lumbosacral anatomy redemonstrated. Impression: 1. No acute findings in the abdomen and pelvis. 2. Hepatic steatosis. ------ Exposure: One or more of the following individualized dose reduction techniques were utilized for thi s examination: 1. Automated exposure control 2. Adjustment of the mA and/or kV according to patient size 3. Use of iterative reconstruction technique. Electronically signed by: Adama Crowder MD (09/27/2021 10:34 PM) [facility]
[2021-09-27] MEDS ORDERED: oxyCODONE/APAP 5/325 1 TAB TABLET PO ONE (23:00)
[2021-09-27 23:05] VITALS: BP 122/69
[2021-09-27] MEDS ORDERED: diphenhydrAMINE HCL 25 MG CAPSULE PO ONE (23:15)
== END 2021-09-27 23:06 | disposition home or self-care (01) ==
LOC: ER 21:15
DX: K76.0 Fatty (change of) liver, not elsewhere classified (principal); K59.00 Constipation, unspecified; K21.9 Gastro-esophageal reflux disease without esophagitis; Z90.89 Acquired absence of other organs; Z88.1 Allergy status to other antibiotic agents; Z88.8 Allergy status to other drugs, medicaments and biological substances
CPT/HCPCS: 74176; 81001; 81025; 96372; 99284; J1885; Q0163